=== PATIENT | female | born 1985 | race Two or more races ===

== ENCOUNTER 2016-06-30 20:45 | Emergency (ER) | payer BC ==
[~2016-06-30] VITALS: Ht 165.1 cm; Wt 74.8 kg
[2016-06-30 20:45] VITALS: BP 118/71
== END 2016-06-30 21:35 | disposition home or self-care (01) ==
LOC: ER 20:49
DX: H66.92 Otitis media, unspecified, left ear (principal); J02.9 Acute pharyngitis, unspecified; M54.2 Cervicalgia; F10.20 Alcohol dependence, uncomplicated
CPT/HCPCS: A4606; Z7610

== ENCOUNTER 2022-07-25 14:57 | Emergency (ER) | payer BC ==
[~2022-07-25] VITALS: Ht 162.6 cm; Wt 81.6 kg
--- NOTE | 2022-07-25 15:45 | NUR ---
BIB C/O LEFT LOWER BACK PAIN SINCE THIS MORNING. AMBULATORY, PLACED IN BED, AAOX4, BREATHING UNLABORED SATURATING AT 96%RA
[2022-07-25] MEDS ORDERED: IV NS 0.9% 1,000 ML BAG IV ONE (17:00)
--- NOTE | 2022-07-25 17:00 | NUR ---
X-RAY TECH AT BEDSIDE
--- NOTE | 2022-07-25 17:10 | NUR ---
CODING MANAGER AT BEDSIDE
[2022-07-25 17:42] LABS: BASOPHILS % (AUTO) 0.5 % (0.0-2.0); EOSINOPHILS % (AUTO) 0.9 % (0.0-6.0); HEMATOCRIT 45 % (33-45); HEMOGLOBIN 14.9 g/dL (11.5-14.8); LYMPHOCYTES # (AUTO) 1.8 K/uL (0.8-4.8); LYMPHOCYTES % (AUTO) 22.5 % (20.0-44.0); MEAN CORPUSCULAR HGB CONC 34 g/dl (31.0-36.0); MEAN CORPUSCULAR VOLUME 89 fL (82-100); MONOCYTES # (AUTO) 0.6 K/uL (0.1-1.30); MONOCYTES % (AUTO) 7.1 % (2.0-12.0); NEUTROPHILS # (AUTO) 5.5 K/uL (1.8-8.9); PLATELET COUNT (AUTO) 238 K/uL (150-450); RED BLOOD CELL COUNT(AUTO) 5.02 MIL/uL (4.0-5.2); WHITE BLOOD COUNT (AUTO) 7.9 K/uL (4.3-11.0)
[2022-07-25 17:54] LABS: CALCIUM, SERUM 9.6 mg/dL (8.5-10.1); CARBON DIOXIDE 26 mmol/L (21-32); CHLORIDE 100 mmol/L (98-107); CREATININE 0.8 mg/dL (0.6-1.3); GLUCOSE 91 mg/dL (74-106); POTASSIUM 4.2 mmol/L (3.5-5.1); SODIUM SERUM 137 mmol/L (136-145); UREA NITROGEN, BLOOD 12 mg/dL (7-18)
[2022-07-25 18:00] LABS: ALANINE AMINOTRANSFERASE 134 U/L (12-78); ALBUMIN 4.4 g/dL (3.4-5.0); ALKALINE PHOSPHATASE 125 U/L (46-116); ASPARTATE AMINOTRANSFERASE 60 U/L (15-37); BILIRUBIN,DIRECT 0.2 mg/dL (0.0-0.2); BILIRUBIN,TOTAL 0.8 mg/dL (0.2-1.0); TOTAL PROTEIN, SERUM 7.8 g/dL (6.4-8.2)
[2022-07-25 18:04] LABS: BILIRUBIN,URINE NEGATIVE (NEGATIVE); COLOR,URINE YELLOW (YELLOW); LEUKOCYTE ESTERASE ,URINE TRACE (NEGATIVE); NITRITE, URINE NEGATIVE (NEGATIVE); PROTEIN,URINE NEGATIVE (NEGATIVE); UGLUCOSE NEGATIVE (NEGATIVE); UROBILINOGEN,URINE 0.2 EU/dL (0.2)
[2022-07-25 18:07] LABS: THYROID STIMULATING HORMONE 1.879 uIU/mL (0.358-3.74)
[2022-07-25 18:09] LABS: BACTERIA,URINE 1+ /HPF (None Seen); RBC,URINE 0-2 /HPF (0-2)
[2022-07-25] MEDS ORDERED: CEPH500C2 PO (18:18)
[2022-07-25] MEDS ORDERED: IBUPROFEN 600 MG TABLET ONE (18:23)
[2022-07-25] MEDS ORDERED: IBUPROFEN 600 MG TABLET PO ONE (18:30)
--- NOTE | 2022-07-25 19:39 | NUR ---
IV removed. Catheter intact and site benign. Pressure and 4x4 applied to site. No bleeding noted.Patient discharged to home in stable condition. Written and verbal after care instructions given. Patient verbalizes understanding of instruction.
[2022-07-25 21:04] VITALS: BP 110/68
== END 2022-07-25 20:20 | disposition home or self-care (01) ==
LOC: ER 14:57
DX: N39.0 Urinary tract infection, site not specified (principal); R53.83 Other fatigue
CPT/HCPCS: 99285; 96360; 71045; 93005; 85025; 80048; 80076; 81001; 36415; 84443; 84484; 82962; J7030